=== PATIENT | female | born 1975 | race African-American/Black ===

== ENCOUNTER 2017-03-04 19:57 | Emergency (ER) | payer BC ==
[2017-03-04 19:59] VITALS: BP_SYST 173; BP_SYST 207; BP_DIAS 103; BP_DIAS 106; PULSE 114; RESP 18; TEMP 98.7; O2SAT 94
--- NOTE | 2017-03-04 20:06 | PD ---
Physical Exam Date Seen by Provider: Mar 04, 2017 Time Seen by Provider: 20:05 Narrative 41 yo female here for psych evaluation. Psychotic in triage. Making non sensical statement. Most information provided by father. Taking meds. Not working. No other medical issues. History of MS. Vitals are stable. Awaiting bed placement. Data Data Last Documented VS Vital Signs Date Time Temp Pulse Resp B/P Pulse Ox O2 Delivery O2 Flow Rate FiO2 03/04/17 19:59 98.7 114 18 173/103 94 Room Air [facility] Medical Record Reviewed: Yes Supervised Visit with REMY: Zack Mariscal Mar 04, 2017 20:06
--- NOTE | 2017-03-04 20:10 | PD ---
HPI Chief Complaint: Psychiatric Symptoms Time Seen by Provider: 20:09 Travel History International Travel<30 days: No Contact w/Intl Traveler<30days: No Traveled to known affect area: No History of Present Illness HPI 41-year-old female with history of MS, depression, anxiety, presents to the emergency department with her for psychiatric evaluation. They're visiting from [place]. Patient's states that she has been taking her medication as prescribed except for her nightly medication for the last 5 nights. She has not gotten more than 2 hours of sleep each night. Her behavior has become more bizarre. He texted her psychiatrist who is in [place] who advised she come to the emergency department for intervention as she is concerned that she is experiencing nikki. Patient is with bizarre, psychotic behavior. History is obtained from her . [facility] Past Medical History Anxiety: Yes Depression: Yes Psychiatric: Yes ?: Not Social History Alcohol Use: No Tobacco Use: No Substance Use: No Allergies-Medications (Allergen,Severity, Reaction): Coded Allergies: No Known Allergies (Unverified , 03/04/17) Review of Systems ROS Limitations: Psychotic Except as stated in HPI: all other systems reviewed are Neg Physical Exam Exam Limitations: Psychotic Narrative GENERAL: Well-nourished female patient, ambulatory, acutely psychotic but appears in no distress. Physical exam is limited due to patient's behavior at this time. SKIN: Appears dry HEAD: Atraumatic EYES: Pupils equal and round. No scleral icterus. No injection or drainage. ENT: No nasal bleeding or discharge. Mucous membranes pink and moist. CARDIOVASCULAR: Regular rate and rhythm. RESPIRATORY: No accessory muscle use. GASTROINTESTINAL: Abdomen nondistended. MUSCULOSKELETAL: No obvious deformities. NEUROLOGICAL: Awake and alert. PSYCHIATRIC: Acutely psychotic Data Data Last Documented VS Vital Signs Date Time Temp Pulse Resp B/P Pulse Ox O2 Delivery O2 Flow Rate FiO2 03/04/17 20:19 18 03/04/17 19:59 98.7 114 173/103 94 Room Air Orders Complete Blood Count With Diff (03/04/17 20:10) Basic Metabolic Panel (Bmp) (03/04/17 20:10) Psych Screen (03/04/17 20:10) Drug Screen, Random Urine (03/04/17 20:10) Alcohol (Ethanol) (03/04/17 20:10) Olanzapine Inj (Zyprexa Inj) (03/04/17 20:30) Olanzapine Odt (Zyprexa Zydis Odt) (03/04/17 20:30) Lorazepam Inj (Ativan Inj) (03/04/17 21:30) Beta Hcg (Quant/Titer) (03/04/17 21:28) MDM Medical Decision Making Medical Screen Exam Complete: Yes Emergency Medical Condition: Yes Medical Record Reviewed: Yes Differential Diagnosis Mood disorder versus personality disorder versus adjustment reaction disorder versus substance abuse versus psychosis Narrative Course 41 year-old female presents to emergency department for evaluation. Patient appears acutely psychotic. She is accompanied by her . Physical exam is limited due to her behavior. She has been medicated and reassessment will be attempted at a later time. 2300 report was given to my attending physician Dr. Solomon. He will assume care at this time. Diagnosis Primary Impression: Psychoses Qualified Code: F29 - Psychosis, unspecified psychosis type Condition: Stable Gail Nuñez Mar 04, 2017 20:09
[2017-03-04] MEDS ORDERED: OLANZapine IM 10 MG VIAL IM ONE (20:30)
[2017-03-04] MEDS ORDERED: OLANZapine ODT 10 MG TAB PO ONE (20:30)
[2017-03-04] MEDS ORDERED: LORazepam 2 MG/ML VIAL IM ONE (21:30)
[2017-03-05 00:05] LABS: AUTOMATED NEUTROPHIL # 4.1 TH/MM3 (1.8-7.7); BASOPHIL % 0.3 % (0.0-2.0); EOSINOPHIL % 0.4 % (0.0-4.0); HEMATOCRIT 38.4 % (35.0-46.0); HEMO FLAGS DIFF FINAL; LYMPHOCYTE # 0.2 TH/MM3 (1.0-4.8); MEAN CORPUSCULAR HEMOGLOBIN 25.6 PG (27.0-34.0); MEAN CORPUSCULAR HGB CONC 32.4 % (32.0-36.0); MONO % 11.2 % (0.0-8.0); NEUT % 84.1 % (16.0-70.0); PLATELET COUNT 214 TH/MM3 (150-450); RED BLOOD COUNT 4.86 MIL/MM3 (4.00-5.30); RED CELL DISTRIBUTION WIDTH 14.8 % (11.6-17.2); WHITE BLOOD COUNT 4.9 TH/MM3 (4.0-11.0)
[2017-03-05 00:20] LABS: ANION GAP 6 MEQ/L (5-15); BLOOD UREA NITROGEN 17 MG/DL (7-18); CHLORIDE 109 MEQ/L (98-107); GLOMERULAR FILTRATION RATE 91 ML/MIN (>89); POTASSIUM 3.6 MEQ/L (3.5-5.1); SODIUM (NA) 142 MEQ/L (136-145)
[2017-03-05 00:25] LABS: BETA HCG QUANT LESS THAN 1 MIU/ML (0-5)
--- NOTE | 2017-03-05 02:09 | PD ---
Data Data Last Documented VS Vital Signs Date Time Temp Pulse Resp B/P Pulse Ox O2 Delivery O2 Flow Rate FiO2 03/04/17 20:19 18 03/04/17 19:59 98.7 114 173/103 94 Room Air Orders Complete Blood Count With Diff (03/04/17 20:10) Basic Metabolic Panel (Bmp) (03/04/17 20:10) Psych Screen (03/04/17 20:10) Drug Screen, Random Urine (03/04/17 20:10) Alcohol (Ethanol) (03/04/17 20:10) Olanzapine Inj (Zyprexa Inj) (03/04/17 20:30) Olanzapine Odt (Zyprexa Zydis Odt) (03/04/17 20:30) Lorazepam Inj (Ativan Inj) (03/04/17 21:30) Beta Hcg (Quant/Titer) (03/04/17 23:46) Labs Laboratory Tests Test 03/04/17 23:46 White Blood Count 4.9 TH/MM3 Red Blood Count 4.86 MIL/MM3 Hemoglobin 12.5 GM/DL Hematocrit 38.4 % Mean Corpuscular Volume 79.0 FL Mean Corpuscular Hemoglobin 25.6 PG Mean Corpuscular Hemoglobin 32.4 % Concent Red Cell Distribution Width 14.8 % Platelet Count 214 TH/MM3 Mean Platelet Volume 8.0 FL Neutrophils (%) (Auto) 84.1 % Lymphocytes (%) (Auto) 4.0 % Monocytes (%) (Auto) 11.2 % Eosinophils (%) (Auto) 0.4 % Basophils (%) (Auto) 0.3 % Neutrophils # (Auto) 4.1 TH/MM3 Lymphocytes # (Auto) 0.2 TH/MM3 Monocytes # (Auto) 0.5 TH/MM3 Eosinophils # (Auto) 0.0 TH/MM3 Basophils # (Auto) 0.0 TH/MM3 CBC Comment DIFF FINAL Differential Comment Sodium Level 142 MEQ/L Potassium Level 3.6 MEQ/L Chloride Level 109 MEQ/L Carbon Dioxide Level 27.0 MEQ/L Anion Gap 6 MEQ/L Blood Urea Nitrogen 17 MG/DL Creatinine 0.84 MG/DL Estimat Glomerular Filtration 91 ML/MIN Rate Random Glucose 100 MG/DL Calcium Level 9.3 MG/DL Human Chorionic Gonadotropin, LESS THAN 1 Quant MIU/ML Ethyl Alcohol Level LESS THAN 3 MG/DL [facility] Supervised Visit with REMY: Yes Narrative Course The history, exam, and medical decision-making in the associated mid-level provider note were completed with my assistance. I reviewed and agree with the findings presented. I attest that I had a [id number] encounter with the patient on the same day, and personally performed and documented my assessment and findings in the medical record. *My assessment and Findings: 41-year-old woman with a history of depression symptoms somewhat related to MS, presents with what appears to be psychotic break and nikki. She's not slept. She's been more anxious and energetic. She now is not really able to talk, and appears floridly psychotic. She has no other symptoms suggest that this is related to the MS but she has not had a psychotic break before. Consider encephalitis, etiologies could include anti NMDA encephalitis or other etiologies. We'll plan on psychiatric evaluation, repeat assessment. Patient is medically clear for psychiatric evaluation. Patient will be placed under a Maddox act. Diagnosis Primary Impression: Psychoses Qualified Code: F29 - Psychosis, unspecified psychosis type Condition: Nicko German MD Mar 05, 2017 02:09
[2017-03-05 02:36] VITALS: BP 142/79; PULSE 71; RESP 18; O2SAT 100
[2017-03-05] MEDS ORDERED: RITA20TA PO (06:12)
[2017-03-05] MEDS ORDERED: CYMB60CA PO (06:12)
[2017-03-05] MEDS ORDERED: HYDR50TA94 PO (06:12)
[2017-03-05] MEDS ORDERED: GABA100C4 PO (06:12)
[2017-03-05] MEDS ORDERED: GABA300C5 PO (06:12)
[2017-03-05 06:50] LABS: AMPHETAMINE, URINE NEG (NEG); COCAINE, URINE NEG (NEG)
[2017-03-05 06:56] LABS: BARBITURATES, URINE NEG (NEG)
[2017-03-05 07:00] VITALS: BP 133/78; PULSE 75; RESP 16; TEMP 98.2; O2SAT 99
[2017-03-05 08:07] VITALS: BP 132/78
--- NOTE | 2017-03-05 12:12 | PD.PSY.CON ---
Provisional Diagnosis Admission Date [facility] I. Unspecified psychosis, history of depression, rule out bipolar disorder, rule out schizoaffective disorder, rule out medically induced psychosis [facility] II. Deferred [facility] III. Multiple sclerosis and hypothyroidism [facility] IV. New onset nikki [facility] V. 55 History of Present Illness Service Psychiatry Consult Requested By Primary Care Physician Non-Staff HPI The patient is a 41-year-old woman, domiciled with her and kids in [place], currently on vacation in [place], unemployed, supported by her , with psychiatric history of depression, anxiety, 1 previous hospitalization, one previous suicidal attempts, active outpatient care with primary psychiatrist in [place], she is on Wellbutrin 300 mg daily, Cymbalta 20 mg, Remeron 30 mg, with medical history of MS, hypothyroidism , who presents to the emergency department with her for psychiatric evaluation. Collateral information from the collected, his name Lina Gomes, he states that she has been taking her medication as prescribed except for her nightly medication for the last 5 nights. She has not gotten more than 2 hours of sleep each night. Her behavior has become more bizarre, she has been talkative, perseverant, repetitive, cleaning constantly the house, talkative, asking the same questions numerous times. He says this is a new behavior the just started days ago. She had never been diagnosed with bipolar disorder. Never had a manic episode in the past. He texted her psychiatrist who is in [place] who advised she come to the emergency department for intervention as she is concerned that she is experiencing nikki. However, today on psychiatric evaluation she is found sleeping. Easily arousable. Calm , cooperative and pleasant. She says that she is not clear what she is here. He says the most probably she has been acting funny, but she doesn't remember anything. She described good mood, she said that she is enjoying her medication with her kids and her . She denies depression, denies anhedonia, denies hopelessness, denies helplessness, denies worthlessness, denies poor appetite, denies low level energy, denies suicidal and homicidal ideation, denies visual and auditory hallucinations. Patient says that she is having hard time sleeping at night, because she left her medication for sleep in [place]. She said that she takes hydroxyzine 25 mg twice a day. During this evaluation there is not pressured speech, no disorganized behaviors are speech, no tangentiality, no attention deficit, no hyperactivity, didactic activities or any other significant signs or symptoms of nikki. Her states that she is now at baseline. Patient denies the use of illicit drugs and alcohol. Review of Systems Constitutional: DENIES: Diaphoretic episodes, Fatigue, Fever, Weight gain, Weight loss, Chills, Dizziness, Change in appetite, Night Sweats Endocrine: DENIES: Abnorml menstrual pattern, Heat/cold intolerance, Polydipsia , Polyuria, Polyphagia Eyes: DENIES: Blurred vision, Diplopia, Eye inflammation, Eye pain, Vision loss , Photosensitivity, Double Vision Ears, nose, mouth, throat: DENIES: Tinnitus, Hearing loss, Vertigo, Nasal discharge, Oral lesions, Throat pain, Hoarseness, Ear Pain, Running Nose, Epistaxis, Sinus Pain, Toothache, Odynophagia Respiratory: DENIES: Apneas, Cough, Snoring, Wheezing, Hemoptysis, Sputum production, Shortness of breath Cardiovascular: DENIES: Chest pain, Palpitations, Syncope, Dyspnea on Exertion , PND, Lower Extremity Edema, Orthopnea, Claudication Genitourinary: DENIES: Abnormal vaginal bleeding, Dysmenorrhea, Dyspareunia, Sexual dysfunction, Urinary frequency, Urinary incontinence, Urgency, Hematuria , Dysuria, Nocturia, Vaginal discharge Musculoskeletal: DENIES: Joint pain, Muscle aches, Stiffness, Joint Swelling, Back pain, Neck pain Integumentary: DENIES: Abnormal pigmentation, Pruritus, Rash, Nail changes, Breast masses, Breast skin changes, Nipple discharge Hematologic/lymphatic: DENIES: Bruising, Lymphadenopathy Immunologic/allergic: DENIES: Eczema, Urticaria Neurologic: DENIES: Abnormal gait, Headache, Localized weakness, Paresthesias, Seizures, Speech Problems, Tremor, Poor Balance Psychiatric: DENIES: Anxiety, Confusion, Mood changes, Depression, Hallucinations, Agitation, Suicidal Ideation, Homicidal Ideation, Delusions Past Family Social History Coded Allergies: No Known Allergies (Unverified , 03/04/17) Reported Medications Hydroxyzine HCl 50 Mg Tab50 Mg PO HS Ref 0 03/05/[address] (Cymbalta DR)60 Mg Capdr60 Mg PO DAILY #30 CAP Ref 0 03/05/17 Methylphenidate IR (Ritalin IR)20 Mg Tab20 Mg PO BIDAC #60 TAB Ref 0 03/05/17 Gabapentin 100 Mg [id number] Mg PO HS #30 CAP Ref 0 03/05/17 Gabapentin 300 Mg [id number] Mg PO DAILY #60 CAP Ref 0 03/05/17 Family History Her mother and brother are both schizophrenic Social History Patient was born and raised in [facility], they're here medication, she is , she has 3 kids, unemployed, supported by , her highest level of education is a bachelor degree Patient's Strengths (min. 2) Family support, private psychiatrist, compliant with medications Physical Exam And physical exams, no tremors, no pressured speech, no hyperactivity, no psychomotor agitation, no EPS Vital Signs Vital Signs Date Time Temp Pulse Resp B/P Pulse Ox O2 Delivery O2 Flow Rate FiO2 03/05/17 08:07 74 16 132/78 99 03/05/17 07:00 98.2 Room Air Lab Results Labs Laboratory Tests Test 03/04/17 23:46 White Blood Count 4.9 TH/MM3 Red Blood Count 4.86 MIL/MM3 Hemoglobin 12.5 GM/DL Hematocrit 38.4 % Mean Corpuscular Volume 79.0 FL Mean Corpuscular Hemoglobin 25.6 PG Mean Corpuscular Hemoglobin 32.4 % Concent Red Cell Distribution Width 14.8 % Platelet Count 214 TH/MM3 Mean Platelet Volume 8.0 FL Neutrophils (%) (Auto) 84.1 % Lymphocytes (%) (Auto) 4.0 % Monocytes (%) (Auto) 11.2 % Eosinophils (%) (Auto) 0.4 % Basophils (%) (Auto) 0.3 % Neutrophils # (Auto) 4.1 TH/MM3 Lymphocytes # (Auto) 0.2 TH/MM3 Monocytes # (Auto) 0.5 TH/MM3 Eosinophils # (Auto) 0.0 TH/MM3 Basophils # (Auto) 0.0 TH/MM3 CBC Comment DIFF FINAL Differential Comment Sodium Level 142 MEQ/L Potassium Level 3.6 MEQ/L Chloride Level 109 MEQ/L Carbon Dioxide Level 27.0 MEQ/L Anion Gap 6 MEQ/L Blood Urea Nitrogen 17 MG/DL Creatinine 0.84 MG/DL Estimat Glomerular Filtration 91 ML/MIN Rate Random Glucose 100 MG/DL Calcium Level 9.3 MG/DL Human Chorionic Gonadotropin, LESS THAN 1 Quant MIU/ML Ethyl Alcohol Level LESS THAN 3 MG/DL Mental Status Examination Appearance woman, age appearing, [facility], calm and cooperative Speech: Unremarkable Orientation: x3 Memory: Unremarkable Thought Process: Logical Thought Content: Unremarkable Hallucination Type: None Suicidal Ideation: No Previous Suicide Attempts: Yes Homicidal Ideation: No Previous Homicide Attempts: No Judgment: WNL Affect if Inappropriate: Flat Mood: Appropriate Motor Activity: Normal gait Assessment & Plan Problem List: (1) Unspecified psychosis Assessment & Plan: On psychiatric evaluation today the patient presents behaving appropriately, calm, cooperative, logical, coherent and relevant. She denies depressive symptoms, she denies anxiety, she denies manic symptoms, she denies psychosis. She denies suicidal or homicidal ideation, she denies visual and auditory hallucinations. Patient does not present any objective manic symptom at this moment. Bizarre behavior, insomnia, goal-directed activities, talkativeness, described by the in the last 3-4 days could be secondary to bipolar disorder decompensation, but also could be related with nikki secondary with multiple antidepressants. Recurrent MS and decompensated hypothyroidism could also be related with the etiology of this presentation. Further medical investigation is definitely admitted. However, both, patient and preferred to leave the hospital today and go back to [place] to her primary medical doctor and outpatient psychiatrist. In my opinion this is an appropriate idea. She does not meet criteria for psychiatric admission at this moment. I will recommend to hold psychotropics until she is seen by outpatient psychiatrist. Maddox act will be lifted. ICD Code: F29 Assessment & Plan Estimated LOS: Solomon Moreira MD Mar 05, 2017 12:12
== END 2017-03-05 08:11 | disposition home or self-care (01) ==
LOC: NEPC 19:57
DX: F29 Unspecified psychosis not due to a substance or known physiological condition (principal); G35 Multiple sclerosis; F41.9 Anxiety disorder, unspecified; F32.9 Major depressive disorder, single episode, unspecified
CPT/HCPCS: 80048; 80307; 84702; 85025; 96372; 99284; J2060